=== PATIENT | female | born 1990 | race Caucasian/White ===

== ENCOUNTER → 2016-10-06 | Outpatient (CLI) | payer OTHER ==
[~2016-10-06] VITALS: Ht 180.3 cm; Wt 144.8 kg
[2016-10-06 15:19] VITALS: BP 118/72; PULSE 76; Ht 180.3 cm; Wt 144.8 kg
== END | disposition home or self-care (01) ==
LOC: C.NEUR 15:00
PROVIDERS: ATTEND Internal Medicine Pulmonary Disease
DX: R06.83 Snoring (principal); G47.19 Other hypersomnia; R51 Headache; E66.01 Morbid (severe) obesity due to excess calories; Z68.42 Body mass index [BMI] 45.0-49.9, adult

== ENCOUNTER → 2016-11-16 | Outpatient (CLI) | payer OTHER ==
--- NOTE | 2016-11-16 14:03 | DIAGNOSTIC IMAGING REPORT ---
LEFT CLAVICLE 2 VIEWS CLINICAL HISTORY: Left clavicular pain. FINDINGS: 2 views of left clavicle are obtained. No prior studies are available for comparison at the time of dictation. The skeletal structures are well mineralized. No fracture is seen. The sternoclavicular joint appears maintained. There is questionable mild superior subluxation of the clavicular head at the acromioclavicular joint. The glenohumeral joint appears intact. The overlying soft tissues are within normal limits. The imaged left upper lobe lung parenchyma appears clear. IMPRESSION: 1. There is no radiographic evidence of left clavicular fracture. 2. Question mild superior subluxation of the clavicular head at the acromioclavicular joint. Correlate clinically for evidence of shoulder separation. Electronically signed by: Dwight Albarran M.D. 11/16/2016 2:01 PM Dictated Date/Time: 11/16/2016 2:00 PM
== END | disposition home or self-care (01) ==
LOC: C.RAD1850 13:48
PROVIDERS: ATTEND Family Medicine
DX: M89.8X1 Other specified disorders of bone, shoulder (principal)

== ENCOUNTER → 2016-11-17 | Outpatient (CLI) | payer OTHER ==
--- NOTE | 2016-11-20 09:05 | POLYSOMNOGRAPH REPORT ---
CLINICAL DATA: A 26-year-old female with a BMI of 44.5, referred for a history of snoring and witnessed apnea with morning headaches and fatigue. On the evening of 11/17/2016, a home sleep apnea test was performed using [employer] type 3 monitor. RECORDING RESULTS: Total recording time was 10 hours. The patient's estimated sleep time and patient monitoring time was 6.8 hours. RESPIRATORY DATA: There was no evidence of clinically significant sleep apnea noted. The KINGSLEY was 0.6. There was 1 obstructive apneic episode and 3 hypopneic episodes recorded. The longest respiratory event was 40 seconds. OXIMETRY DATA: No hypoxemia was seen. Oxygen lala was 92%. Mean saturation was 95%. HEART RATE DATA: Heart rates ranged from 53-71 beats per minute. SNORING DATA: Snoring was recorded intermittently through the night. IMPRESSION: No evidence of clinically significant sleep apnea/hypopnea or nocturnal hypoxemia to explain this patient's symptoms. RECOMMENDATIONS: The patient should practice good sleep hygiene. GERI
== END | disposition home or self-care (01) ==
LOC: C.NEUR 14:57
PROVIDERS: ATTEND Internal Medicine Pulmonary Disease
DX: F41.9 Anxiety disorder, unspecified (principal); Z68.42 Body mass index [BMI] 45.0-49.9, adult; G47.33 Obstructive sleep apnea (adult) (pediatric); R06.83 Snoring; G47.19 Other hypersomnia; E66.01 Morbid (severe) obesity due to excess calories; R51 Headache

== ENCOUNTER → 2016-11-27 | Outpatient (CLI) | payer OTHER ==
[~2016-11-27] VITALS: Ht 180.3 cm; Wt 143.7 kg
[2016-11-27 13:10] VITALS: BP 118/68; PULSE 76; Ht 180.3 cm; Wt 143.7 kg
== END | disposition home or self-care (01) ==
LOC: C.NEUR 12:47
PROVIDERS: ATTEND Internal Medicine Pulmonary Disease
DX: G47.19 Other hypersomnia (principal); R51 Headache; E66.01 Morbid (severe) obesity due to excess calories

== ENCOUNTER → 2017-03-16 | Outpatient (CLI) | payer OTHER ==
[2017-03-16 16:12] LABS: BLOOD UREA NITROGEN 10 mg/dl (7-18); BUN/CREATININE RATIO 11.9 (10-20); CARBON DIOXIDE 28 mmol/L (21-32); CHLORIDE 102 mmol/L (98-107); CREATININE 0.84 mg/dl (0.60-1.20); GLUCOSE 90 mg/dl (70-99); SODIUM 137 mmol/L (136-145)
== END | disposition home or self-care (01) ==
LOC: C.LAB 14:10
PROVIDERS: ATTEND Internal Medicine
DX: E55.9 Vitamin D deficiency, unspecified (principal)

== ENCOUNTER → 2017-04-28 | Outpatient (CLI) | payer OTHER | END | disposition home or self-care (01) | LOC: C.PAPS 09:20 | PROVIDERS: ATTEND Physician Assistant | DX: Z12.4 Encounter for screening for malignant neoplasm of cervix (principal) ==

== ENCOUNTER 2022-07-31 21:33 | Inpatient (IN) ==
[2022-07-31] MEDS ORDERED: OXYTOCIN 30 UNITS/500 ML BAG IV PRN (21:53)
[2022-07-31] MEDS ORDERED: LIDOCAINE 1% LOCAL 20 ML VIAL INFIL PRN (21:53)
--- NOTE | 2022-07-31 21:55 | History & Physical Report ---
Date of Service July 31, 2022 Assessment & Plan (1) Obesity affecting : Plan: grossly ruptured, admit History of Present Illness Primary Care Provider: Faisal Catalan MD LULI Calculator Estimated Delivery Date Method Current WG Current Estimate 08/02/22 LMP (Certain) 39w 2d Other Estimates 08/06/22 Ultrasound #1 38w 5d LMP: 10/26/21 : 1 Full term: 0 Premature: 0 Total Number of Induced Abortions: 0 Total Number of Spontaneous Abortions: 0 Ectopics: 0 Multiple births: 0 Number of Living Children: 0 and Delivery Plans Obesity (BMI between 35-39 @ beginning of ) *Growth US @ 32 wks *Weekly NSTs @ 36wks Unable to view Heart on Anatomy x 2 * echo (05/12/22 @ [facility] [place] - WNL has two covid vaccines recommend-- 3rd Covid vaccine - Moderna 02/18/22 Allergies Allergy/AdvReac Type Severity Reaction Status Date / Time No Known Allergies Allergy Verified 07/28/22 16:13 Home Medications Medication Instructions Recorded Confirmed Type venlafaxine 150 mg 150 mg PO DAILY #90 caps 03/13/19 07/31/22 History capsule,extended release 24 hr bupropion HCl 300 mg 24 hr tablet, 300 mg PO QAM #30 tabs 03/18/20 07/31/22 Rx extended release venlafaxine 75 mg tablet,extended 75 mg PO DAILY #30 tabs 03/18/20 07/31/22 Rx release 24 hr prenat.vits,jessica,typ-bkpj-uoihn 1 tab PO DAILY 12/22/21 07/31/22 History Patient History Medical History Adjustment reaction with anxiety and depression Anxiety disorder History of chicken pox Hyperlipidemia Metabolic syndrome Vitamin D deficiency Surgical History No pertinent past surgical history Family History Mother COPD (chronic obstructive pulmonary disease) Depression Diabetes Gestational Osteoporosis Ovarian cyst Thyroid disease Morbid obesity Father Diabetes Anemia Hyperlipidemia Kidney disease Hypertension Grandmother (Maternal) Breast cancer Uncle Myocardial infarction Denies family history of Ovarian cancer Prostate cancer Colorectal cancer Stroke Social History Smoking Status: Never smoker Tobacco Type: Cigarettes Age Started Using Tobacco: 18; packs per day: 0.25; Cigarettes Per Day: 10; Second Hand Exposure: No; Hx Alcohol Use: Yes Hx Substance Use: No Preferred Language: [place] Visual Impairment: Limited Hearing Ability: Normal Beliefs That Will Affect Care: None marital status: Single marital status details: tatum Buckley (37) [phone] Current Living Situation: Significant Other Current Living Situation Comment: lives with fob, dog, cat-fob to change litter current occupational status: employed current occupation: RN -[employer] Feels Safe at Home: Yes Childhood Exposure to Second-Hand Smoke: Yes Dental Care, Regularly: Yes Physical Activity Frequency: 1-2 Times per Week Seatbelt Use: always Sunscreen Use: Yes Review of Systems as per Subjective / HPI Physical Exam Constitutional: WD/WN, vitals as above well developed and well nourished Respiratory: normal respiratory effort, lungs clear to auscultation normal respiratory effort Cardiovascular: RRR, no murmur, no edema Gastrointestinal (Abdomen): normal bowel sounds, soft, nontender, no hep atosplenomegaly Results & Data ([facility]) Vital Signs (Past 12 Hours) Vital Signs Pulse BP 07/31/22 21:49 113 H 133/80 Coding Level of Care Code None Diagnoses Obesity affecting O99.210
[2022-07-31 22:58] LABS: Mean Corpuscular Hemoglobin 29.8 pg (25.0-34.0); Mean Corpuscular Hgb Conc 34.3 g/dL (32.0-36.0); Mean Corpuscular Volume 86.8 fL (80.0-100.0); Mean Platelet Volume 9.4 fL (9.4-12.3); Platelet Count 367 K/uL (130-400); RDW Coefficient of Variation 12.6 % (11.5-14.5); RDW Standard Deviation 39.9 fL (36.4-46.3); Red Blood Count 4.03 M/uL (3.93-5.22); White Blood Count 14.66 K/ul (4.8-10.8)
[2022-08-01] MEDS: LACTATED RINGER'S 1,000 ML IV PRN ×2 (00:19→03:26)
[2022-08-01] MEDS ORDERED: ePHEDrine sulfate 50 MG/ML AMP ONE (00:23)
[2022-08-01] MEDS ORDERED: SODIUM CHLORIDE 0.9% INJ 10 ML VIAL ONE (00:24)
[2022-08-01] MEDS ORDERED: BUPIVACAINE 0.25% 30 ML VIAL ONE (00:24)
[2022-08-01] MEDS ORDERED: LIDOCAINE 2%/EPINEPHRINE 1:200,000 20 ML SDV ONE (00:24)
[2022-08-01] MEDS ORDERED: fentaNYL 2MCG/ML ROPIVACAINE 1.25MG/ML 100 ML BAG EPI ONE (00:24)
[2022-08-01] MEDS ORDERED: fentaNYL citrate 100 MCG/2 ML VIAL ONE (00:24)
[2022-08-01] MEDS ORDERED: diphenhydrAMINE 50 MG/ML VIAL IV PRN (00:32)
[2022-08-01] MEDS ORDERED: ONDANSETRON INJ 2 MG/ML 2 ML VIAL IV PRN (00:32)
[2022-08-01] MEDS ORDERED: NALOXONE HCL 0.4 MG/1 ML VIAL/CARP IV PRN (00:32)
[2022-08-01] MEDS ORDERED: NALOXONE HCL 1 MG in SODIUM CHLORIDE 0.9% 1000ML 1,000 ML IV PRN (00:32)
[2022-08-01] MEDS ORDERED: NALBUPHINE HCL INJ 10 MG/ML AMP IV PRN (00:32)
[2022-08-01] MEDS ORDERED: ePHEDrine sulfate 50 MG/ML AMP IV PRN (00:32)
--- NOTE | 2022-08-01 00:34 | Anesthesiology Consultation ---
Date of Service August 01, 2022 Assessment & Plan (1) Encounter for pre-operative examination: Chart Review Chart Review: Patient NOT seen in Pre Admission Testing and Acceptable Risk for Labor Epidural Consults Requested none History Height/Weight Height: 5 ft 11 in Weight: 134.263 kg Allergies Allergy/AdvReac Type Severity Reaction Status Date / Time No Known Allergies Allergy Verified 07/28/22 16:13 Medications Home Medications Medication Instructions Recorded Confirmed Last Taken venlafaxine 150 mg 150 mg PO DAILY #90 caps 03/13/19 07/31/22 07/31/22 capsule,extended release 24 hr 0800 bupropion HCl 300 mg 24 hr tablet, 300 mg PO QAM #30 tabs 03/18/20 07/31/22 07/31/22 extended release 0800 venlafaxine 75 mg tablet,extended 75 mg PO DAILY #30 tabs 03/18/20 07/31/22 07/31/22 release 24 hr 0800 prenat.vits,jessica,efp-bcyp-erimu 1 tab PO DAILY 12/22/21 07/31/22 07/31/22 0800 Active Medications Generic Name Dose Route Start Last Admin Trade Name Freq PRN Reason Stop Dose Admin Lactated Ringer's 1,000 mls @ 125 mls/hr 07/31/22 21:53 08/01/22 00:19 Lr IV 08/02/22 21:52 999 mls/hr .Q8H PRN Administration L&D Protocol Protocol Past Medical History Medical History Adjustment reaction with anxiety and depression Anxiety disorder History of chicken pox Hyperlipidemia Metabolic syndrome Vitamin D deficiency Exercise / Class Metabolic Activity II 4-5 Yardwork/Stairs/Walk up hill Past Family History Family History Mother COPD (chronic obstructive pulmonary disease) Depression Diabetes Gestational Osteoporosis Ovarian cyst Thyroid disease Morbid obesity Father Diabetes Anemia Hyperlipidemia Kidney disease Hypertension Grandmother (Maternal) Breast cancer Uncle Myocardial infarction Denies family history of Ovarian cancer Prostate cancer Colorectal cancer Stroke Past Surgical History Surgical History No pertinent past surgical history Past Anesthesia History No Hx of Anesthesia Complications and No Family Hx of Anesthesia Complications History of PONV No Hx of PONV and No Hx of Motion Sickness Social History Smoking Status: Never smoker Smoking cigarettes per day: 10 Hx Alcohol Use: No Hx Substance Use: No Physical Exam Vital Signs Last Vital Signs Temp 36.6 C 07/31/22 23:50 Pulse 81 08/01/22 00:50 Resp 20 07/31/22 23:50 BP 133/75 07/31/22 23:50 Pulse Ox 99 08/01/22 00:50 O2 Del Method 08/01/22 00:00 Testing Laboratory Results 07/31/22 22:27 Blood Type B Positive 07/31/22 22:27 Antibody Screen NEGATIVE 07/31/22 22:27
[2022-08-01] MEDS: fentaNYL 2MCG/ML ROPIVACAINE 1.25MG/ML 100 ML BAG EPI PRN ×2 (00:59→06:40)
[2022-08-01] MEDS ORDERED: NURSING L&D Epidural Breakthrough Pain Update ONE (05:23)
--- NOTE | 2022-08-01 08:36 | Labor Progress Brief Note ---
Date of Service August 01, 2022 Subjective comfortable Assessment & Plan (1) with 39 completed weeks gestation: (2) SROM (spontaneous rupture of membranes): Plan Will begin pushing now. Fetus reassuring. Anticipate . Admission and Anticipated Discharge Date Admission Date: July 31, 2022 Physical Exam Physical Exam: cx/c/c/+1 toco--q2-3min efm--category one Results & Data ([facility]) Vital Signs (Past 12 Hours) Vital Signs Temp Pulse Resp BP Pulse Ox O2 Del Method 08/01/22 07:26 36.6 C 18 08/01/22 00:00 Room Air 07/31/22 21:59 36.8 C 18 08/01/22 08:30 88 97 08/01/22 08:25 84 96 08/01/22 08:23 74 148/92 H 08/01/22 08:20 106 H 98 08/01/22 08:15 64 18 96 08/01/22 08:10 69 97 08/01/22 08:08 67 140/80 08/01/22 08:05 109 H 98 08/01/22 08:00 103 H 98 08/01/22 07:55 93 H 98 08/01/22 07:53 108 H 134/74 08/01/22 07:50 81 99 08/01/22 07:45 87 98 08/01/22 07:40 75 100 08/01/22 07:39 78 136/81 08/01/22 07:35 89 100 08/01/22 07:30 81 99 08/01/22 07:25 82 100 08/01/22 07:24 76 143/87 H 08/01/22 07:20 76 100 08/01/22 07:15 81 99 08/01/22 07:10 67 100 08/01/22 07:08 81 152/89 H 08/01/22 07:05 80 98 08/01/22 07:00 75 18 96 08/01/22 06:55 85 95 08/01/22 06:53 72 141/79 H 08/01/22 06:50 76 96 08/01/22 06:45 81 96 08/01/22 06:40 80 96 08/01/22 06:38 93 H 134/74 08/01/22 06:35 94 H 96 08/01/22 06:30 80 16 95 08/01/22 06:25 77 96 08/01/22 06:23 81 132/73 08/01/22 06:20 77 96 08/01/22 06:15 79 96 08/01/22 06:10 81 96 08/01/22 06:08 79 134/73 08/01/22 06:05 76 96 08/01/22 06:00 79 18 98 08/01/22 05:55 100 H 98 08/01/22 05:52 75 137/77 08/01/22 05:50 72 98 08/01/22 05:45 79 96 08/01/22 05:40 83 98 08/01/22 05:35 82 97 08/01/22 05:30 82 18 97 08/01/22 05:25 84 97 08/01/22 05:20 84 98 08/01/22 05:15 37.1 C 84 18 99 08/01/22 05:10 81 136/61 97 08/01/22 05:05 77 98 08/01/22 05:00 86 16 96 08/01/22 04:56 78 134/68 08/01/22 04:55 94 H 96 08/01/22 04:50 79 98 08/01/22 04:45 81 97 08/01/22 04:40 87 129/76 97 08/01/22 04:35 82 96 08/01/22 04:30 86 16 97 08/01/22 04:25 83 138/84 98 08/01/22 04:20 89 97 08/01/22 04:15 76 97 08/01/22 04:11 93 H 134/77 08/01/22 04:10 93 H 98 08/01/22 04:05 98 H 98 08/01/22 04:00 87 98 08/01/22 03:55 94 H 97 08/01/22 03:50 77 96 08/01/22 03:45 72 98 08/01/22 03:40 76 128/76 98 08/01/22 03:35 76 98 08/01/22 03:30 79 18 99 08/01/22 03:25 78 126/75 98 08/01/22 03:20 71 97 08/01/22 03:12 18 08/01/22 03:12 36.8 C 18 08/01/22 03:15 64 97 08/01/22 03:11 75 127/73 08/01/22 03:10 79 98 08/01/22 03:05 89 99 08/01/22 03:00 84 18 96 08/01/22 02:56 90 116/77 08/01/22 02:55 82 95 08/01/22 02:50 85 96 08/01/22 02:45 85 96 08/01/22 02:42 90 116/77 08/01/22 02:40 115 H 97 08/01/22 02:35 87 97 08/01/22 02:30 91 H 16 96 08/01/22 02:25 91 H 96 08/01/22 02:26 91 H 120/70 08/01/22 02:20 86 95 08/01/22 02:15 82 95 08/01/22 02:12 100 H 120/69 08/01/22 02:10 110 H 96 08/01/22 02:05 112 H 97 08/01/22 02:00 109 H 16 96 08/01/22 01:55 103 H 96 08/01/22 01:56 106 H 110/67 08/01/22 01:50 89 96 08/01/22 01:45 100 H 97 08/01/22 01:40 84 110/73 97 08/01/22 01:35 74 96 08/01/22 01:36 77 123/65 08/01/22 01:31 80 127/68 08/01/22 01:30 71 16 97 08/01/22 01:25 98 08/01/22 01:25 75 08/01/22 01:25 91 H 119/75 08/01/22 01:20 16 08/01/22 01:20 36.6 C 16 08/01/22 01:20 99 08/01/22 01:20 89 08/01/22 01:20 81 121/68 08/01/22 01:17 74 129/79 08/01/22 01:10 16 08/01/22 01:10 16 08/01/22 01:15 80 100 08/01/22 01:16 76 130/77 08/01/22 01:14 93 H 126/68 08/01/22 01:12 82 125/71 08/01/22 01:10 99 08/01/22 01:10 93 H 08/01/22 01:10 87 128/77 08/01/22 01:08 86 128/77 08/01/22 01:05 83 98 08/01/22 01:06 82 129/75 08/01/22 01:04 85 130/78 08/01/22 01:02 82 125/80 08/01/22 01:00 78 122/81 99 08/01/22 00:58 84 127/80 08/01/22 00:55 78 100 08/01/22 00:56 85 134/84 08/01/22 00:53 78 132/83 08/01/22 00:50 81 99 08/01/22 00:45 99 H 100 08/01/22 00:40 93 H 99 08/01/22 00:35 90 100 08/01/22 00:30 157 H 99 07/31/22 23:50 20 07/31/22 23:50 36.6 C 20 07/31/22 23:50 88 07/31/22 23:50 133/75 07/31/22 21:49 36.9 C 113 H 20 133/80 Coding Level of Care Code None Diagnoses with 39 completed weeks gestation Z3A.39 SROM (spontaneous rupture of membranes)
[2022-08-01] MEDS ORDERED: DIPHTHERIA/TETANUS/PERTUSSIS 0.5 ML SYR/VIAL IM ONE (09:24)
[2022-08-01] MEDS ORDERED: HYDROCORTISONE ACETATE 25 MG SUPP PR PRN (09:24)
[2022-08-01] MEDS ORDERED: OXYTOCIN 30 UNITS/500 ML BAG IV PRN (09:24)
[2022-08-01] MEDS ORDERED: METHYLERGONOVINE MALEATE 0.2 MG/ML AMP IM ONE (09:24)
[2022-08-01] MEDS ORDERED: IBUPROFEN 600 MG TAB PO PRN (09:24)
[2022-08-01] MEDS ORDERED: oxyCODONE/ACETAMINOPHEN 5mg/325mg TAB PO PRN (09:24)
[2022-08-01] MEDS ORDERED: ACETAMINOPHEN 325 MG TAB PO PRN (09:24)
[2022-08-01] MEDS ORDERED: miSOPROStoL 200 MCG TAB PR ONE (09:24)
[2022-08-01] MEDS ORDERED: bisacodyL 10 MG SUPP PR PRN (09:24)
[2022-08-01] MEDS ORDERED: BENZOCAINE 20% AER SPR 82.5 GM CAN EXT PRN (09:24)
--- NOTE | 2022-08-01 09:30 | Delivery Summary ---
Vaginal Delivery Summary Date of Service August 01, 2022 Vaginal Delivery Summary and 2nd Degree LAC (right sulcal, bilateral labial lacs) Pre-operative Diagnosis: at 39 weeks srom Post-operative Diagnosis: same right sulcal tear, bilateral labial tears, second degree perineal laceration Procedure: epidural repair of vaginal, labial and sulcal tears EBL: 600cc Anesthesia: epidural Procedure: The patient presented to labor and delivery with srom. She was admitted, received and epidural and progressed spontaneously to c/c/+1. The patient pushed for 10 minutes to deliver a viable infant in naya position. The rest of the infant was then delivered immediately, without difficulty through a loose nuchal and body cord. The baby was vigorous. The nose and mouth were bulb suctioned and the infant was placed in the maternal abdomen for drying and attention. Cord was clamped and cut at one minute of life. Cord blood and segment obtained. Placenta delivered spontaneous, intact with a three vessel cord. Cervix/rectum were intact. A second degree perineal laceration, bilateral labial laceration and right sulcal laceration was repaired in the normal standard fashion. Hemostasis obtained with dilute pitocin and fundal massage, rectal cytotec and one dose of methergine. There was some uterine atony and bleeding from the vaginal lacerations that combined for the ebl. Apgars were 8/9. Mother and baby doing well at the end of the delivery. [facility] [place] Vaginal Delivery Charge Delivery Type Details: and 2nd Degree LAC (right sulcal, bilateral labial lacs)
--- NOTE | 2022-08-01 10:41 | Anesthesia Procedure Note ---
Date of Service August 01, 2022 Anesthesia Post Epidural Note Vital Signs Vital Signs: Temp Pulse Resp BP Pulse Ox O2 Del Method 36.6 C 95 H 18 123/75 97 08/01/22 07:26 08/01/22 10:34 08/01/22 09:25 08/01/22 10:34 08/01/22 09:20 08/01/22 00:00 Pain Intensity Bilateral Lower Abdomen: Pain Intensity: 3 Notes Mental Status: alert / awake / arousable Nausea / Vomiting: adequately controlled Pain: adequately controlled Airway Patency, RR, SpO2: stable & adequate BP & HR: stable & adequate Hydration State: stable & adequate Neuraxial Anesthesia: was administered and sensory block is resolving Anesthetic Complications: no major complications apparent Epidural: Removed without complications and With tip intact
[2022-08-01] MEDS ORDERED: miSOPROStoL 200 MCG TAB ONE (14:22)
[2022-08-01] MEDS ORDERED: METHYLERGONOVINE MALEATE 0.2 MG/ML AMP ONE (14:22)
[2022-08-01] MEDS: DOCUSATE SODIUM 100 MG CAP PO SCH (21:41)
[2022-08-02 07:49] LABS: Hematocrit (blood only) 26.5 % (34.1-44.9); Hemoglobin 8.9 g/dl (12.0-16.0)
[2022-08-02] MEDS: DOCUSATE SODIUM 100 MG CAP PO SCH (07:56)
[2022-08-02] MEDS ORDERED: PRENATAL VITAMIN 1 TAB PO SCH (08:00)
--- NOTE | 2022-08-02 08:00 | Obstetrical Progress Note ---
Date of Service August 02, 2022 Assessment & Plan (1) Vaginal delivery: (2) hemorrhage: Plan Doing well. h/h noted, asymptomatic, most bleeding from lacerations. Patient desires d/c. Instructions given. Day #:: 1 Subjective Ambulation: ambulating normally Voiding: no voiding problems Passing Gas:: Yes Diet Tolerance:: regular diet Lochia:: Small Feeding Type:: breast feeding Feels well and would like to go home today. Physical Exam Constitutional WD/WN, vitals as above Cardiovascular Extremities: + edema (tr); no calf tenderness Gastrointestinal (Abdomen) obese, soft, nt, nd ff/nt at u Psychiatric A+Ox3, euthymic affect Results & Data ([facility]) Vital Signs (Past 12 Hours) Vital Signs Temp Pulse Resp BP Pulse Ox O2 Del Method 08/02/22 03:44 36.8 C 98 H 18 102/69 98 Room Air 08/02/22 00:35 36.8 C 102 H 18 112/75 97 Room Air 08/01/22 21:20 Room Air 08/01/22 21:20 36.9 C 99 H 18 119/82 96 Room Air
[2022-08-02] MEDS ORDERED: bisacodyL 5 MG TABEC PO SCH (20:00)
== END 2022-08-02 18:25 | disposition home or self-care (01) | DRG 807 ==
LOC: OPB 21:33 → 4S1 21:34 → 4E2 08-01 14:45